=== PATIENT | female | born 1945 | race Caucasian/White ===

== ENCOUNTER 2022-09-07 16:47 | Inpatient (IN) | payer OTHER, MEDICAID ==
[~2022-09-07] VITALS: Ht 152.4 cm; Wt 59.0 kg
[2022-09-07 16:47] VITALS: BP_SYST 130
--- NOTE | 2022-09-07 16:47 | NUR ---
BROUGHT IN BY [facility]BULANCE AND PLACED IN HALLWAY, TRIAGED. AWAITING ER BED AVAILABILITY
[2022-09-07] MEDS ORDERED: ONDANSETRON HCL 4 MG/2 ML VIAL IVP ONE (17:00)
[2022-09-07] MEDS ORDERED: VANCOMYCIN HCL 1,000 MG in D5W 250 ML IV ONE (17:00)
[2022-09-07] MEDS ORDERED: MORPHINE 4 MG INJ. 4 MG/ML VIAL IVP ONE ×2 (17:00→20:00)
[2022-09-07] MEDS ORDERED: PIPERACILLIN/TAZO 3.375 GM in D5W 50 ML IV ONE (17:00)
[2022-09-07] MEDS ORDERED: NS 1000 ML IV.SOLN IV ONE (17:00)
[2022-09-07] MEDS ORDERED: MOM PO (17:03)
[2022-09-07] MEDS ORDERED: VOLTAREN GEL TP (17:03)
[2022-09-07] MEDS ORDERED: ACET-73 PO (17:03)
[2022-09-07] MEDS ORDERED: APIX5TAB4 PO (17:03)
[2022-09-07] MEDS ORDERED: LIDO700A30 TP (17:03)
[2022-09-07] MEDS ORDERED: ACET325T53 PO (17:03)
[2022-09-07] MEDS ORDERED: AMLO2.5T2 PO (17:03)
[2022-09-07] MEDS ORDERED: BISA-79 PR (17:03)
--- NOTE | 2022-09-07 17:03 | NUR ---
Medication reconciliation completed with information provided by MATILDA PRECIADO. Any prior medication reconciliation on file was reviewed and corrected.
[2022-09-07 17:28] LABS: BASOPHILS # (AUTO) 0.1 K/uL (0.0-0.2); BASOPHILS % (AUTO) 0.9 % (0.0-2.0); EOSINOPHILS # (AUTO) 0.2 K/uL (0.0-0.4); EOSINOPHILS % (AUTO) 2.7 % (0.0-4.0); HEMATOCRIT 41.6 % (36-48); HEMOGLOBIN 14.1 g/dL (12.0-16.0); LYMPHOCYTES # (AUTO) 3.2 K/uL (1.0-5.5); LYMPHOCYTES % (AUTO) 47.7 % (20.5-51.5); MEAN CORPUSCULAR HEMOGLOBIN 30 pg (27-31); MEAN CORPUSCULAR HGB CONC 34 % (32-36); MEAN CORPUSCULAR VOLUME 87 fL (79.0-98.0); MONOCYTES # (AUTO) 0.6 K/uL (0.0-1.0); MONOCYTES % (AUTO) 8.7 % (1.7-9.3); NEUTROPHILS # (AUTO) 2.7 K/uL (1.8-7.7); PLATELET COUNT (AUTO) 189 K/uL (130-430); RED BLOOD CELL COUNT(AUTO) 4.79 MIL/uL (4.2-6.2); RED CELL DISTRIBUTION WIDTH 13.7 % (9.0-15.0); WHITE BLOOD COUNT (AUTO) 6.7 K/uL (4.8-10.8)
--- NOTE | 2022-09-07 17:40 | NUR ---
# 22 gauge angiocath placed to RAC. Use of asceptic technique. Opsite placed over site. Blood return noted. Flushed with 10 cc of normal saline. No evidence of infiltration noted. Patient tolerated well.
[2022-09-07 17:42] LABS: ANION GAP 9 (5-15); CALCIUM 8.9 mg/dL (8.4-11.0); CHLORIDE 106 mmol/L (98-107); CREATININE 1.07 mg/dL (0.55-1.30); GLUCOSE 110 mg/dL (70-99); UREA NITROGEN, BLOOD 15 mg/dL (8-21)
[2022-09-07] MEDS ORDERED: PIPERACILLIN/TAZOBACTAM 3.375 GM/VIAL (ZOSYN) IV ONE (17:44)
[2022-09-07] MEDS ORDERED: VANCOMYCIN HCL 1000 MG/VIAL IV ONE (17:44)
[2022-09-07 17:48] LABS: ALANINE AMINOTRANSFERASE 9 U/L (12-78); ALBUMIN 2.9 g/dL (3.4-4.8); ASPARTATE AMINOTRANSFERASE 11 U/L (10-37); TOTAL BILIRUBIN 0.3 mg/dL (0.0-1.0)
--- NOTE | 2022-09-07 19:17 | NUR ---
REPORT GIVEN TO CARLOS CORREA FOR CONTINUING CARE
--- NOTE | 2022-09-07 19:35 | NUR ---
Admit bed requested Patient will be admitted to care of . Admitted to MED SURG unit. Diagnosis CELLULITIS AND GANGRENE LEFT FOOT Inpatient (Yes or No) YES Observation (Yes or No) NO Orientation concerns or request close to nursing station (Yes or No) NO Covid Status NEG On vent or bipap NO Isolation requirements NO Needs a sitter NO From Home (Yes or if No enter name of facility) MATILDA PRECIADO Requires Dialysis (Yes or No) NO Med Rec Completed (Yes of No) PENDING
--- NOTE | 2022-09-07 20:37 | NUR ---
COVID SWAB OBTAINED AND SENT TO LAB.
--- NOTE | 2022-09-07 21:16 | NUR ---
Patient will be admitted to care of DR HOWELL. Admitted to MED SURG unit. Will go to room 118A. Belongings list completed. Complete and up to date summary report printed. SBAR report to be given at bedside with opportunity for questions.
--- NOTE | 2022-09-07 21:25 | NUR ---
ADMISSION NOTE Received patient from ER via [place]. Patient admitted with diagnosis of CELLULITIS, GANGRENE LEFT FOOT. Patient oriented to hospital routine, call light, toileting and safety-patient verbalized understanding.
--- NOTE | 2022-09-07 21:35 | NUR ---
Initial RN notes Received pt from ED. Pt AAOx3, VSS, afebrile. Pt right away requested pain medication Morphine and Tums Informed pt we need to call MD to get orders. Left great toe black dry wound noted open to air. Pt refused for it to be touched. Photo taken. Oriented to call light use. Bed low, locked, siderails up x3, alarm on. To monitor.
[2022-09-07 21:36] VITALS: BP_SYST 139
--- NOTE | 2022-09-07 21:50 | NUR ---
Pagemichelle Huerta for pain medication.
--- NOTE | 2022-09-07 21:56 | NUR ---
called back Received callback from Dr. Huerta and order received for Tums and Morphine. Will carry out.
[2022-09-07] MEDS ORDERED: NALOXONE HCL 0.4 MG/ML AMP (NARCAN) IVP PRN (22:00)
[2022-09-07] MEDS ORDERED: ONDANSETRON HCL 4 MG/2 ML VIAL IVP PRN (22:00)
[2022-09-07] MEDS: CALCIUM CARBONATE 500 MG/ TAB.CHEW PO SCH (22:09)
[2022-09-07] MEDS: MORPHINE 2 MG/ML INJ. SYRINGE IVP PRN (22:12)
--- NOTE | 2022-09-07 22:12 | NUR ---
Pain med Pt medicated with c/o 05/09 Left toe wound pain with Morphine 2mg IVP as needed. Wound open to air. Call light within reach.
[2022-09-07] MEDS ORDERED: PIPERACILLIN/TAZOBACTAM 2.25 GM VIAL IV ONE (23:07)
--- NOTE | 2022-09-07 23:45 | NUR ---
MRSA collected and sent to lab.
[2022-09-07] MEDS: PIPERACILLIN/TAZOBACTAM 2.25 GM in NS 50 ML IV SCH (23:59)
[2022-09-08 00:28] VITALS: BP_SYST 118
--- NOTE | 2022-09-08 03:02 | NUR ---
Rounds Pt asleep, no s/s distress or discomfort noted. Call light within reach. Bed low, locked, siderail up x3, alarm on.
--- NOTE | 2022-09-08 04:07 | NUR ---
Consultation Paged Reason for Consultation: gangrene left foot Was consult called: Y Person who was notified: Angi Consulting Physician: Dr. Coker Ordering Physician: Ann Portillo
[2022-09-08] MEDS: PIPERACILLIN/TAZOBACTAM 2.25 GM in NS 50 ML IV SCH (05:38)
[2022-09-08] MEDS: MORPHINE 2 MG/ML INJ. SYRINGE IVP PRN ×4 (05:39→21:29)
--- NOTE | 2022-09-08 05:48 | NUR ---
Consultation Paged Reason for Consultation: GANGRENE LEFT FOOT Was consult called: Y Person who was notified: Safia Consulting Physician: Dr. Gibbs Ordering Physician: Ann Portillo
--- NOTE | 2022-09-08 05:54 | NUR ---
Received call from MD Dr. Gibbs called re new consult. Informed MD re Xray left toe result.
--- NOTE | 2022-09-08 05:55 | NUR ---
Closing notes Pt alert, awake, watching TV, no s/s distress noted. IV antibiotic administered at ordered rate R. AC 22 clear and patent. Pt medicated with pain med and Zofran for c/o stomach discomfort/nausea. Informed pt Tums is not due yet. Left toe wound kept uncovered and untouched per pt request. Call light within reach. Bed low, locked, siderails up x3, alarm on. To endorse to AM nurse.
[2022-09-08 08:00] VITALS: BP_SYST 140
[2022-09-08] MEDS: CALCIUM CARBONATE 500 MG/ TAB.CHEW PO SCH ×3 (08:24→21:27)
[2022-09-08 11:58] VITALS: BP_SYST 132
[2022-09-08] MEDS: FLUCONAZOLE 200 mg/ NS 100 ML IV SCH (12:00)
--- NOTE | 2022-09-08 15:20 | NUR ---
Wound evaluation attempted: Wound evaluation attempted, but patient refused assessment, and refused to have toe/foot touched for assessment. Unable to measure site. Will attempt assessment on 09/09/2022. 1. Left Hallux: Left Hallux has severely overgrown area of 100% black gangrene. No odor, possibly scant yellow drainage in between lateral great toe and medial second toe. Recommend: Pour Betadine over gangrenous area. Cleanse area in between lateral great toe and medial second toe with normal saline. Dry with gauze in between toes. Insert calcium alginate dressing in between area in between lateral great toe and medial second toe. Perform site care daily. Change calcium alginate dressing daily, and as needed for dressing soiling or dislodgment.
[2022-09-08 16:44] VITALS: BP_SYST 108
[2022-09-08] MEDS ORDERED: VANCOMYCIN HCL 750 MG in NS 250 ML IV SCH (17:00)
[2022-09-08 20:00] VITALS: BP_SYST 118
--- NOTE | 2022-09-08 20:00 | NUR ---
ASSESSMENT COMPLETE, PATIENT REFUSE NURSE TO TOUCH THE LEFT GREAT TOE, PATIENT INCONTINENT OF URINE, PERICARE GIVEN, PATIENT ABLE TO LIFT BOTTOM TO CHANGE PAIN, COMFORT MAINTAINED WITH MORPHINE, SEE EMAR
[2022-09-09 00:15] VITALS: BP_SYST 135
--- NOTE | 2022-09-09 01:30 | NUR ---
PATIENT GIVEN A SNACK, PATIENT WATCHING TV
--- NOTE | 2022-09-09 03:00 | NUR ---
PATIENT SLEEPING, NO DISTRESS NOTED, COMFORT MAINTAINED, PATIENT ABLE TO REPOSITION SELF IN BED, PATIENT WILL NOT TURN Q2HRS, PATIENT REFUSE LEFT GREAT TOE DRESSING CHANGE
[2022-09-09] MEDS: MORPHINE 2 MG/ML INJ. SYRINGE IVP PRN ×3 (05:54→22:30)
[2022-09-09 08:00] VITALS: BP_SYST 133
[2022-09-09] MEDS: CALCIUM CARBONATE 500 MG/ TAB.CHEW PO SCH ×3 (08:52→22:29)
[2022-09-09] MEDS: FLUCONAZOLE 200 mg/ NS 100 ML IV SCH (12:47)
--- NOTE | 2022-09-09 15:16 | NUR ---
Assessment re: hospice consult Telephone call with the daughter, Najma Rodarte, about the recent hospice consult. The daughter states she did speak with the dr, but was still not clear as to what hospice did. I gave a brief general overview of what hospice does, but advised her that the hospice agency could explain their services to them. per daughter, she would need to discuss this information with her brother first before a decision is made. The daughter states she does not have a preferred hospice at this time. I provided her with several hospice brochures for her to review at bedside. At the daughter's request, hospice agencies were also sent to her via email for her review. Najma Rodarte:
[2022-09-09] MEDS ORDERED: FLUCONAZOLE 200 mg/ NS 100 ML IV SCH (16:15)
--- NOTE | 2022-09-09 17:13 | NUR ---
Dietitian Recommendations * CCHO + Cardiac diet, Vanilla Glucerna BID + Danny BID (supplements yield 620 kcal/day, 25 g PRO/day). - RN to mix Glucerna w/ water per pt request. * Encourage good PO intake during meal times. * Provided PM & HS snacks of v. pudding & orange slices. LP, MS, RD Please refer to Nutrition Assessment for details. Addendum: 09/09/22 at 1714 by Shira PRICE Amended: Links added.
--- NOTE | 2022-09-09 19:34 | NUR ---
RECEIVED REPORT ON PATIENT FROM CARLOS KAHN, ASSUMED CARE, AND STARTED ASSESSMENT.
[2022-09-09] MEDS: ceFAZolin SODIUM 1 GM in D5W 50 ML IV SCH (22:36)
[2022-09-10 00:55] VITALS: BP_SYST 125
[2022-09-10] MEDS: ceFAZolin SODIUM 1 GM in D5W 50 ML IV SCH ×3 (06:00→21:08)
[2022-09-10 07:44] VITALS: BP_SYST 145
[2022-09-10] MEDS: CALCIUM CARBONATE 500 MG/ TAB.CHEW PO SCH ×3 (10:34→21:08)
[2022-09-10] MEDS: FLUCONAZOLE 200 mg/ NS 100 ML IV SCH (10:57)
[2022-09-10] MEDS: MORPHINE 2 MG/ML INJ. SYRINGE IVP PRN ×3 (10:59→21:13)
[2022-09-10 12:00] VITALS: BP_SYST 122
[2022-09-10 16:00] VITALS: BP_SYST 105
--- NOTE | 2022-09-10 19:24 | NUR ---
RECEIVED REPORT ON PATIENT FROM CARLOS ROGEL, ASSUMED CARE, AND STARTED ASSESSMENT.
[2022-09-10 20:00] VITALS: BP_SYST 105
--- NOTE | 2022-09-10 20:15 | NUR ---
TRANSFER OF CARE/OPENING NOTE Received report from CARLOS Mosquera. Pt is awake lying in bed watching TV. No s/s of respiratory distress. Breathing even and unlabored on RA. IV site intact and patent saline lock. Fall and safety precautions in place with bed in lowest position, bed alarm on, and call light within reach
--- NOTE | 2022-09-11 00:15 | NUR ---
ROUNDS Pt lying in bed, eyes closed. Breathing even and unlabored. Fall and safety checks in place
[2022-09-11 00:47] VITALS: BP_SYST 106
[2022-09-11] MEDS: MORPHINE 2 MG/ML INJ. SYRINGE IVP PRN ×5 (02:29→20:43)
[2022-09-11] MEDS: ceFAZolin SODIUM 1 GM in D5W 50 ML IV SCH ×3 (06:05→21:20)
--- NOTE | 2022-09-11 06:26 | NUR ---
REFUSED WOUND CARE pt refused AM wound care on left big toe
--- NOTE | 2022-09-11 06:38 | NUR ---
CLOSING NOTE Pt is awake lying in bed. No s/s of respiratory distress. Breathing even and unlabored on RA. IV site intact and patent. All needs met throughout shift. Fall and safety precautions in place with bed in lowest position, bed alarm on, and call light within reach.
--- NOTE | 2022-09-11 08:00 | NUR ---
received patient from pm nurse, alert and oriented able to verbalize needs, no distress observed, will assume all care of patient
[2022-09-11 08:52] LABS: ALANINE AMINOTRANSFERASE 7 U/L (12-78); ALBUMIN 2.2 g/dL (3.4-4.8); ANION GAP 9 (5-15); ASPARTATE AMINOTRANSFERASE 17 U/L (10-37); CALCIUM 8.7 mg/dL (8.4-11.0); CHLORIDE 107 mmol/L (98-107); CREATININE 0.83 mg/dL (0.55-1.30); GLUCOSE 108 mg/dL (70-99); TOTAL BILIRUBIN 0.4 mg/dL (0.0-1.0); UREA NITROGEN, BLOOD 11 mg/dL (8-21)
[2022-09-11] MEDS: CALCIUM CARBONATE 500 MG/ TAB.CHEW PO SCH ×3 (10:03→21:00)
[2022-09-11 11:47] VITALS: BP_SYST 100
[2022-09-11] MEDS: FLUCONAZOLE 200 mg/ NS 100 ML IV SCH (12:55)
--- NOTE | 2022-09-11 16:22 | NUR ---
patient refused to have wound on foot assesed or wound care done
--- NOTE | 2022-09-11 16:42 | NUR ---
CONSULTATION PAGED REASON FOR CONSULTATIONl:CARDIAC CLEARNCE PRE OP SURGERY AMUPTATION LEFT T WAS CONSULT CALLED?Y PERSON WHO WAS NOTIFIED:TEXT MESSAGED SANDEEP WHITAKER CONSULTING PHYSICIAN:SANDEEP WHITAKER MACHINE SETTER AND REPAIRER SPECIALTY:CARDIO MACHINE SETTER AND REPAIRER PHONE NUMBER:[phone] REQUESTING PHYSICIAN:KYLER TURNER
[2022-09-11 17:04] VITALS: BP_SYST 118
--- NOTE | 2022-09-11 19:30 | NUR ---
OPENING NOTE PT LYING IN BED, EYES OPENED. BREATHING EVEN AND NONLABORED. PT REQUESTED MORPHINE FOR PAIN ON HER LEFT BIG TOE. PAIN LEVEL 6/10. VSS. BED ALARM ON AND LOWEST POSITION. CALL LIGHT IN REACH. CONTINUE TO MONITOR.
[2022-09-11 20:00] VITALS: BP_SYST 115
[2022-09-11 22:00] VITALS: BP_SYST 115
[2022-09-12] VITALS: BP_SYST 115
[2022-09-12] MEDS: MORPHINE 2 MG/ML INJ. SYRINGE IVP PRN ×3 (00:55→10:24)
--- NOTE | 2022-09-12 01:00 | NUR ---
ROUNDING NOTE PT LYING IN BED. BREATHING EVEN AND NONLABORED. COMPLAINED ABOUT THE PAIN OF HER LEFT GREAT TOE AND REQUESTED MORPHINE. GIVEN MORPHINE VIA IV BY CARLOS ALVARADO. BED ALARM ON AND LOWEST POSITION.
--- NOTE | 2022-09-12 05:45 | NUR ---
LINEN CHANGED PT'S BED WET WITH URINE. PROVIDED PERINEAL CARE AND CHANGED LINEN AND BLANKET. NO S/S OF ACUTE DISTRESS. BED ALARM ON AND LOWEST POSITION. CALL LIGHT IN REACH. PT ON NPO FOR SCHEDULED SURGERY.
[2022-09-12] MEDS: ceFAZolin SODIUM 1 GM in D5W 50 ML IV SCH ×3 (06:03→21:54)
[2022-09-12 06:28] LABS: BASOPHILS # (AUTO) 0.1 K/uL (0.0-0.2); BASOPHILS % (AUTO) 0.9 % (0.0-2.0); EOSINOPHILS # (AUTO) 0.5 K/uL (0.0-0.4); EOSINOPHILS % (AUTO) 7.2 % (0.0-4.0); HEMATOCRIT 41.9 % (36-48); LYMPHOCYTES # (AUTO) 2.7 K/uL (1.0-5.5); LYMPHOCYTES % (AUTO) 42.8 % (20.5-51.5); MEAN CORPUSCULAR HEMOGLOBIN 29 pg (27-31); MEAN CORPUSCULAR HGB CONC 33 % (32-36); MEAN CORPUSCULAR VOLUME 87 fL (79.0-98.0); MONOCYTES # (AUTO) 0.6 K/uL (0.0-1.0); MONOCYTES % (AUTO) 10.1 % (1.7-9.3); NEUTROPHILS # (AUTO) 2.5 K/uL (1.8-7.7); PLATELET COUNT (AUTO) 181 K/uL (130-430); RED CELL DISTRIBUTION WIDTH 14.2 % (9.0-15.0); WHITE BLOOD COUNT (AUTO) 6.4 K/uL (4.8-10.8)
[2022-09-12 06:43] LABS: ANION GAP 10 (5-15); CALCIUM 8.4 mg/dL (8.4-11.0); CHLORIDE 106 mmol/L (98-107); GLUCOSE 102 mg/dL (70-99); UREA NITROGEN, BLOOD 9 mg/dL (8-21)
--- NOTE | 2022-09-12 06:58 | NUR ---
CLOSING NOTE PT LYING BED. EYES CLOSED. NO S/S ACUTE DISTRESS. BREATHING EVEN AND NONLABORED. LEFT GREAT TOE IS BLACK COLOR AND DRY. BED ALARM ON AND LOWEST POSITION.
[2022-09-12 07:00] LABS: PROTHROMBIN TIME 10.7 SECS (9.5-12.5)
[2022-09-12] MEDS: CALCIUM CARBONATE 500 MG/ TAB.CHEW PO SCH ×3 (09:00→21:03)
--- NOTE | 2022-09-12 11:00 | NUR ---
PATIENTS IV IN LAC BECAME DISLODGED, NEW IV STARTED IN RFA 22G
[2022-09-12] MEDS: FLUCONAZOLE 200 mg/ NS 100 ML IV SCH (12:00)
[2022-09-12 13:15] VITALS: BP_SYST 111
[2022-09-12] MEDS ORDERED: MIDAZOLAM HCL 2 MG/2 ML VIAL (VERSED) ONE (13:30)
[2022-09-12] MEDS ORDERED: LR 1,000 ML IV.SOLN IV ONE (13:30)
[2022-09-12] MEDS ORDERED: KETOROLAC TROMETHAMINE 30 MG VIAL ONE (13:30)
[2022-09-12] MEDS ORDERED: PHENYLEPHRINE HCL 10 MG/ML VIAL (NEOSYNEPHRINE) ONE (13:30)
[2022-09-12] MEDS ORDERED: ceFAZolin SODIUM 2 GM VIAL ONE (13:30)
[2022-09-12] MEDS ORDERED: fentaNYL CITRATE/PF 100 MCG/2 ML AMP ONE (13:30)
[2022-09-12] MEDS ORDERED: NS IRRIG SOLN 1000 ML IR ONE (13:30)
[2022-09-12] MEDS ORDERED: PROPOFOL 200MG/ 20ML VIAL (DIPRIVAN) IV ONE (13:30)
[2022-09-12] MEDS ORDERED: DEXAMETHASONE SOD PHOSPHATE 4 MG/ML VIAL ONE (13:30)
[2022-09-12] MEDS ORDERED: SEVOFLURANE 15 MIN GAS INH ONE (13:30)
[2022-09-12] MEDS ORDERED: ONDANSETRON HCL 4 MG/2 ML VIAL ONE (13:30)
[2022-09-12] MEDS ORDERED: LABETALOL 100 MG/ 20ML VIAL IVP PRN (14:30)
[2022-09-12] MEDS ORDERED: LR 1,000 ML IV SCH (14:30)
[2022-09-12] MEDS ORDERED: hydrALAZINE HCL 20 MG/ML VIAL IVP PRN (14:30)
[2022-09-12] MEDS ORDERED: METOCLOPRAMIDE HCL 10 MG/2 ML VIAL IVP PRN (14:30)
[2022-09-12] MEDS ORDERED: HYDROmorphone 1 MG/ML INJ. CARTRIDGE IVP PRN ×2 (14:30)
[2022-09-12] MEDS ORDERED: MEPERIDINE HCL/PF 25 MG/ML DISP.SYRIN IVP PRN (14:30)
[2022-09-12] MEDS ORDERED: ACETAMINOPHEN I.V. 1000 MG 100 ML IV ONE (14:39)
--- NOTE | 2022-09-12 15:00 | NUR ---
PATIENT TRANSPORTED TO OR, REPORT GIVEN TO RECEIVING NURSE
[2022-09-12] MEDS ORDERED: traMADol HCL HCL 50 MG TABLET (ULTRAM) PO PRN (15:45)
[2022-09-12] MEDS ORDERED: HYDROmorphone 1 MG/ML INJ. CARTRIDGE ONE (15:51)
--- NOTE | 2022-09-12 15:53 | NUR ---
Attempted to see pt. for OT eval, pt is in OR for procedure, will attempt again tomorrow. nursing notified.
--- NOTE | 2022-09-12 16:55 | NUR ---
Met with Dr. Huerta in the station to inquire about the family's decision regarding hospice. I advised him of last week's conversation with the daughter and the daughter's plan to review the information provided and discuss with her brother over the weekend. advised that a follow call was made to the daughter earlier today with a request to return the message, but that i will call again before i leave for the day. Telephone conversation with the daughter, Najma, to discuss hospice. Per daughter, she received the information but has not had a chance to discuss with her brother. I advised her of the plan at this time, as the patient will have the surgery today, and if all goes well, there could be potential discharge planning for tomorrow. Daughter advised that she will need to make the decision to place her mother on hospice at the SNF. daughter asked about which hospice would follow her. Daughter informed that hospice is a medicare benefit, therefore she can choose whichever hospice she would like. Daughter advised that the patient's drThiago does have a preferred hospice, in which his preferred hospice is [facility], but the ultimate decision is up to her. Daughter states she will discuss hospice this evening with her brother and will follow up with me tomorrow.
--- NOTE | 2022-09-12 17:06 | NUR ---
PATIENT RETURNED FROM OR, S/P R GREAT TOE AMPUTATION, DRESSING INTACT, NO C/O PAIN, BP 100/52
[2022-09-12 18:45] VITALS: BP_SYST 125
[2022-09-12 20:00] VITALS: BP_SYST 111
--- NOTE | 2022-09-12 20:49 | NUR ---
RECEIVED PT LYING IN BED, NO DISTRESS NOTED, DENIES PAIN. AAOX3, O2 SAT 97% ON RA. LUNGS CLEAR, DRSG TO LT FOOT CDI. IV TO RT FA SITE CDI
[2022-09-12] MEDS: DOCUSATE SODIUM 100 MG CAPSULE PO SCH (21:03)
[2022-09-13 01:00] VITALS: BP_SYST 101
[2022-09-13 04:10] LABS: BILIRUBIN,URINE NEGATIVE (NEGATIVE); BLOOD, URINE NEGATIVE (NEGATIVE); COLOR,URINE GREEN (YELLOW); GLUCOSE,URINE NEGATIVE (NEGATIVE); KETONES,URINE TRACE (NEGATIVE); LEUKOCYTE ESTERASE ,URINE NEGATIVE (NEGATIVE); NITRITE, URINE NEGATIVE (NEGATIVE); PH,URINE 6.5 (5.0-8.0); PROTEIN URINE TRACE (NEGATIVE); UROBILINOGEN,URINE 0.2 (0.2-1.0)
[2022-09-13 04:21] LABS: CLARITY/URINE CLEAR (CLEAR)
[2022-09-13 04:22] LABS: BACTERIA,URINE None Seen /HPF (None Seen); RBC,URINE 0-3 /HPF (0-3); WBC,URINE 0-3 /HPF (0-3)
[2022-09-13] MEDS: ceFAZolin SODIUM 1 GM in D5W 50 ML IV SCH ×3 (05:28→21:54)
--- NOTE | 2022-09-13 08:20 | NUR ---
OPENING NOTES: RECEIVED BEDSIDE SBAR FROM PM SHIFT NURSE, PATIENT REMAINS STABLE, NO S/S OF ANY DISTRESS, RESTING IN BED WITH EYES CLOSED, CALL LIGHT IN REACH, BED AT LOW AND LOCKED POSITION, WILL CONT TO MONITOR PER ORDERS
[2022-09-13] MEDS: CALCIUM CARBONATE 500 MG/ TAB.CHEW PO SCH ×3 (09:21→21:00)
[2022-09-13] MEDS: DOCUSATE SODIUM 100 MG CAPSULE PO SCH ×2 (09:22→21:55)
[2022-09-13 11:40] VITALS: BP_SYST 125; BP_SYST 154; BP_SYST 90
[2022-09-13] MEDS: FLUCONAZOLE 200 mg/ NS 100 ML IV SCH (14:09)
[2022-09-13 15:10] VITALS: BP_SYST 91
--- NOTE | 2022-09-13 16:10 | NUR ---
OT TECH AT BEDSIDE, STATING PATIENT WAS CURSING TELL HIM TO GET OUT, ALL SHE WANT TO DO IS SLEEP. WILL TRY TOMORROW
--- NOTE | 2022-09-13 16:34 | NUR ---
Pt. was seen for OT mnotse, needs encouragement to participate with eval, agreeable initially but after assessing bed mobility and sitting balance, pt started to be agitated. Pt said she just want to sleep and to leave her alone. Pt educate importance of Therapy to increase functional independence. Pt refused to continue and said she doesn't want therapy. Called Pt's daughter for PLF. PT was leaving in SNF for more than 1 yr and has the same uncooperative, aggressive, negative and sometimes hostile behavior. Pls see OT montse for more detail. Nursing notified... OT montse Only, no follow up treatment recommended at this time.
--- NOTE | 2022-09-13 16:36 | NUR ---
HOSPICES DAUGHTER EMILY CALLED ([phone] CELL), YES, DOES WANT HOSPICE FOR HER MOM.
--- NOTE | 2022-09-13 18:52 | NUR ---
CLOSING NOTES: PATIENT REMAINED STABLE, NO S/S OF ANY DISTRESS, CALL LIGHT IN REACH BED AT LOW AND LOCKED POSITION, WILL GIVE PM SHIFT NURSE BEDSIDE SBAR.
[2022-09-13 20:30] VITALS: BP_SYST 129
[2022-09-13] MEDS: SENNOSIDES/DOCUSATE SODIUM 1 TAB TABLET(SENOKOT-S) PO SCH (21:00)
--- NOTE | 2022-09-13 22:15 | NUR ---
Left Great Toe area no bleeding noted / patient does Refuse care at times / .
--- NOTE | 2022-09-14 01:42 | NUR ---
Hourly Rounding patient resting comfort measures implemented call sellers given to patient chest movement symmetrical unlabored .
--- NOTE | 2022-09-14 02:30 | NUR ---
KAMILA GUARDADO po given patient tolerate with sips of water , up right position .
--- NOTE | 2022-09-14 04:27 | NUR ---
Patient Resting assist for position change comfort measures implemented Respirations Remain Regular also unlabored / .
[2022-09-14] MEDS: ceFAZolin SODIUM 1 GM in D5W 50 ML IV SCH ×3 (05:53→21:17)
[2022-09-14 08:00] VITALS: BP_SYST 98
[2022-09-14] MEDS: CALCIUM CARBONATE 500 MG/ TAB.CHEW PO SCH ×3 (10:41→20:42)
[2022-09-14] MEDS: DOCUSATE SODIUM 100 MG CAPSULE PO SCH ×2 (10:42→20:42)
[2022-09-14 12:05] VITALS: BP_SYST 111
[2022-09-14] MEDS: FLUCONAZOLE 200 mg/ NS 100 ML IV SCH (12:56)
--- NOTE | 2022-09-14 14:54 | NUR ---
Sueding Machine Operator re: hospice eval Telephone call made to the daughter, Najma, to inform her of the current hospice eval order. The daughter states her and the brother have spoken and are in agreement with hospice services. Per daughter, she is in agreement to go with the 's preferred hospice, [facility]. I advised the daughter that I will submit a clinical packet to [facility] and that they will call her to discuss the services being provided. Clinical packet sent to [facility]. [facility] advised that the patient does not have a discharge order at this time, but to discuss services and discharge arrangements with the daughter. [facility]: [phone]
[2022-09-14 15:20] VITALS: BP_SYST 97
--- NOTE | 2022-09-14 16:19 | NUR ---
Received call from Jorge Luis at [facility] who advised they received the referral and have made contact with the daughter, Najma. Per Jorge Luis, the daughter has indicated that she does not want the patient to return to [facility]. Jorge Luis states [facility] is currently looking for alternative placement options for the patient. Jorge Luis advised that there is still no discharge order in place. At this time, [facility] is actively working on finding placement for the patient upon discharge. [facility]: [phone]
--- NOTE | 2022-09-14 18:59 | NUR ---
P.T. NOTES P.T. EVAL COMPLETED; REFER TO EVAL FOR DETAILS.
[2022-09-14 20:00] VITALS: BP_SYST 96
[2022-09-14] MEDS: SENNOSIDES/DOCUSATE SODIUM 1 TAB TABLET(SENOKOT-S) PO SCH (20:42)
[2022-09-15] MEDS: ceFAZolin SODIUM 1 GM in D5W 50 ML IV SCH ×3 (05:36→21:18)
--- NOTE | 2022-09-15 07:27 | NUR ---
receive the patient form the fast food shift lead rn in rm 128A aox3 with admitting diagnosis of cellulitis of the left toe gangrene . still with antibiotics . will continue to monitor
[2022-09-15] MEDS: CALCIUM CARBONATE 500 MG/ TAB.CHEW PO SCH ×3 (09:07→21:00)
[2022-09-15] MEDS: DOCUSATE SODIUM 100 MG CAPSULE PO SCH ×2 (09:07→21:00)
[2022-09-15 11:05] VITALS: BP_SYST 119
[2022-09-15] MEDS: FLUCONAZOLE 200 mg/ NS 100 ML IV SCH (14:29)
[2022-09-15 15:05] VITALS: BP_SYST 112
--- NOTE | 2022-09-15 18:20 | NUR ---
will endorse to hourly shift manager rn for continuity of care . still for antibiotics therapy . planning to be discharge to if
--- NOTE | 2022-09-15 19:25 | NUR ---
CHANGE OF SHIFT; endorsed by day shift nurse Jeet. S/P rt. great toe amputation. in no distress. does not want to be bothered at this time since she is watching some show on tv.
[2022-09-15 20:00] VITALS: BP_SYST 118
[2022-09-15] MEDS: SENNOSIDES/DOCUSATE SODIUM 1 TAB TABLET(SENOKOT-S) PO SCH (21:00)
--- NOTE | 2022-09-15 21:00 | NUR ---
NOTES: pt. refused oral medications. rt. foot dressing intact and elevated with pillow. IV lock on rt. arm. safety precautions observed.
--- NOTE | 2022-09-15 22:00 | NUR ---
NOTES: pt. incontinent of urine and changed and kept dry. repositioned. IV antibiotic infusing.
--- NOTE | 2022-09-16 00:15 | NUR ---
NOTES: due VS checked. no complaints manifested.
[2022-09-16 00:32] VITALS: BP_SYST 125
--- NOTE | 2022-09-16 02:30 | NUR ---
NOTES: pt. sleeping when checked. condition unchanged.
[2022-09-16] MEDS: ceFAZolin SODIUM 1 GM in D5W 50 ML IV SCH ×3 (05:33→21:30)
--- NOTE | 2022-09-16 05:40 | NUR ---
NOTES: joann care done, incontinent of urine and had a bm. pt. has mood swings. IV patent, due IV antibiotic started.left great toe incision intact, dressing removed. kept elevated with pillow.
--- NOTE | 2022-09-16 06:52 | NUR ---
CLOSING NOTES; pt. went back to sleep. kept wound open to air with sutures intact. sequential compressor on. IV site patent. bed alarm on. for further assistance. will endorse to incoming shift.
--- NOTE | 2022-09-16 07:24 | NUR ---
receive the patient from the colliery clerk rn [email or web address] admitting diagnosis of cellulitis of the left toe . will continue to monitor
[2022-09-16 07:58] LABS: BASOPHILS % (AUTO) 0.9 % (0.0-2.0); EOSINOPHILS # (AUTO) 0.3 K/uL (0.0-0.4); EOSINOPHILS % (AUTO) 4.6 % (0.0-4.0); HEMATOCRIT 36.3 % (36-48); HEMOGLOBIN 12.3 g/dL (12.0-16.0); LYMPHOCYTES # (AUTO) 2.4 K/uL (1.0-5.5); LYMPHOCYTES % (AUTO) 41.5 % (20.5-51.5); MEAN CORPUSCULAR HEMOGLOBIN 29 pg (27-31); MEAN CORPUSCULAR HGB CONC 34 % (32-36); MEAN CORPUSCULAR VOLUME 87 fL (79.0-98.0); MONOCYTES # (AUTO) 0.6 K/uL (0.0-1.0); MONOCYTES % (AUTO) 11.3 % (1.7-9.3); NEUTROPHILS # (AUTO) 2.4 K/uL (1.8-7.7); NEUTROPHILS % (AUTO) 41.7 % (40.0-70.0); PLATELET COUNT (AUTO) 173 K/uL (130-430); RED BLOOD CELL COUNT(AUTO) 4.18 MIL/uL (4.2-6.2); WHITE BLOOD COUNT (AUTO) 5.7 K/uL (4.8-10.8)
[2022-09-16 08:00] VITALS: BP_SYST 130
[2022-09-16 08:13] LABS: ANION GAP 5 (5-15); CALCIUM 8.4 mg/dL (8.4-11.0); CHLORIDE 108 mmol/L (98-107); CREATININE 0.98 mg/dL (0.55-1.30); GLUCOSE 97 mg/dL (70-99); UREA NITROGEN, BLOOD 14 mg/dL (8-21)
[2022-09-16] MEDS: CALCIUM CARBONATE 500 MG/ TAB.CHEW PO SCH ×3 (09:38→21:23)
[2022-09-16] MEDS: DOCUSATE SODIUM 100 MG CAPSULE PO SCH ×2 (09:38→21:23)
[2022-09-16] MEDS: FLUCONAZOLE 200 mg/ NS 100 ML IV SCH (11:53)
--- NOTE | 2022-09-16 18:55 | NUR ---
still with antibiotics for her left toe ampution .for snif placement . will endorse to shift superintendent rn for continuity of care
[2022-09-16] MEDS: SENNOSIDES/DOCUSATE SODIUM 1 TAB TABLET(SENOKOT-S) PO SCH (21:23)
[2022-09-16 21:45] VITALS: BP_SYST 109
[2022-09-17 01:23] VITALS: BP_SYST 120
[2022-09-17 04:33] VITALS: BP_SYST 112
[2022-09-17] MEDS ORDERED: SENN-22 PO (05:23)
[2022-09-17] MEDS ORDERED: CEPH250C PO (05:23)
[2022-09-17] MEDS ORDERED: DOCU-144 PO (05:23)
[2022-09-17] MEDS ORDERED: FLUC200T PO (05:23)
[2022-09-17] MEDS: ceFAZolin SODIUM 1 GM in D5W 50 ML IV SCH ×3 (05:37→21:46)
--- NOTE | 2022-09-17 07:30 | NUR ---
OPENING NOTES: PT RESTING IN BED, NO S/S PAIN OR DISCOMFORT. IV SITE REMAIN INTACT AND CLEAN. NO IV INFILTRATION OR INFECTION NOTED. CALL LIGHT WITHIN REACH. ENCOURAGED TO USE CALL LIGHT FOR ASSISTANCE. BED ALARM ON. WILL CONT TO MONITOR.
[2022-09-17 08:00] VITALS: BP_SYST 124
[2022-09-17] MEDS: DOCUSATE SODIUM 100 MG CAPSULE PO SCH ×2 (08:52→21:45)
[2022-09-17] MEDS: CALCIUM CARBONATE 500 MG/ TAB.CHEW PO SCH ×3 (08:52→21:45)
--- NOTE | 2022-09-17 11:25 | NUR ---
NOTES; DENIES ANY PAIN OR DISCOMFORT. IV REMAIN INTACT AND CLEAN. WILL CONT TO MONITOR
[2022-09-17 11:33] VITALS: BP_SYST 110
[2022-09-17] MEDS: FLUCONAZOLE 200 mg/ NS 100 ML IV SCH (12:11)
--- NOTE | 2022-09-17 15:30 | NUR ---
NOTES; PT RESTING IN BED COMFORTABLY. DENIES ANY PAIN OR DISCOMFORT. WILL CONT TO MONITOR
[2022-09-17 16:54] VITALS: BP_SYST 112
--- NOTE | 2022-09-17 18:53 | NUR ---
CLOSING NOTE; PT RESTING IN BED, BREATHING NON-LABORED AND REGULAR. IV SITE REMAIN INTACT AND PATENT. NO IV INFILTRATION OR INFECTION. BED IS LOCKED AND AT LOW POSITION. SAFETY PRECAUTION IN PLACE. ENCOURAGED PT TO USE CALL LIGHT FOR ASSISTANCE. WILL ENDORSE CARE TO OFFSET PLATE PREPARATION SUPERVISOR NURSE.
--- NOTE | 2022-09-17 19:58 | NUR ---
PT IN BED, AOX3, EVEN AND UNLABORED BREATHING, IV ACCESS PATENT AND FLUSHING, SAFETY PREC MAINTAINED, CALL LIGHT WITHIN REACH, WILL CONTINUE WITH PLAN OF CARE
[2022-09-17 20:05] VITALS: BP_SYST 116
[2022-09-17] MEDS: SENNOSIDES/DOCUSATE SODIUM 1 TAB TABLET(SENOKOT-S) PO SCH (21:45)
[2022-09-18 01:37] VITALS: BP_SYST 108
[2022-09-18] MEDS: ceFAZolin SODIUM 1 GM in D5W 50 ML IV SCH ×3 (06:14→21:45)
[2022-09-18 06:22] LABS: ANION GAP 5 (5-15); C-REACTIVE PROTEIN QUANT 0.4 mg/dL (0-0.5); CALCIUM 8.4 mg/dL (8.4-11.0); CHLORIDE 107 mmol/L (98-107); CREATININE 1.07 mg/dL (0.55-1.30); GLUCOSE 97 mg/dL (70-99); UREA NITROGEN, BLOOD 12 mg/dL (8-21)
[2022-09-18 06:37] LABS: BASOPHILS # (AUTO) 0.1 K/uL (0.0-0.2); BASOPHILS % (AUTO) 1.2 % (0.0-2.0); EOSINOPHILS # (AUTO) 0.4 K/uL (0.0-0.4); EOSINOPHILS % (AUTO) 6.6 % (0.0-4.0); HEMATOCRIT 35.2 % (36-48); HEMOGLOBIN 11.7 g/dL (12.0-16.0); LYMPHOCYTES # (AUTO) 2.3 K/uL (1.0-5.5); LYMPHOCYTES % (AUTO) 43.6 % (20.5-51.5); MEAN CORPUSCULAR HEMOGLOBIN 29 pg (27-31); MEAN CORPUSCULAR HGB CONC 33 % (32-36); MEAN CORPUSCULAR VOLUME 88 fL (79.0-98.0); MONOCYTES # (AUTO) 0.7 K/uL (0.0-1.0); MONOCYTES % (AUTO) 12.8 % (1.7-9.3); NEUTROPHILS # (AUTO) 1.9 K/uL (1.8-7.7); NEUTROPHILS % (AUTO) 35.8 % (40.0-70.0); PLATELET COUNT (AUTO) 179 K/uL (130-430); RED CELL DISTRIBUTION WIDTH 14.1 % (9.0-15.0); WHITE BLOOD COUNT (AUTO) 5.4 K/uL (4.8-10.8)
--- NOTE | 2022-09-18 07:11 | NUR ---
PT IN BED, AOX2, EVEN AND UNLABORED BREATHING, L BIG TOE DSG CLEAN, DRY AND INTACT, NO ACTIVE BLEEDING NOTED, IV ACCESS PATENT AND FLUSHING, RECEIVED ALL DUE MEDS, NO C/O SOB, CP OR ANY PAIN DURING SHIFT, SAFETY PREC MAINTAINED, CALL LIGHT WITHIN REACH, WILL BED ENDORSED TO AM RN
[2022-09-18 07:13] LABS: ERYTHROCYTE SEDIMENTATION RATE 12 MM/HR (0-20)
--- NOTE | 2022-09-18 07:47 | NUR ---
OPENING NOTE; PT SLEEPING IN BED WITH EYES CLOSED, BREATHING EVEN AND NON-LABORED. NO S/S OF ANY PAIN OR DISCOMFORT. NO IV INFILTRATION OR INFECTION NOTED. BED IS LOCKED AND AT LOW POSITION. CALL LIGHT WITHIN REACH. BED ALARM ON. ENCOURAGED TO USE CALL LIGHT FOR ASSISTANCE. WILL CONT TO MONITOR
[2022-09-18 08:00] VITALS: BP_SYST 128
[2022-09-18] MEDS: DOCUSATE SODIUM 100 MG CAPSULE PO SCH ×2 (09:00→20:24)
[2022-09-18] MEDS: CALCIUM CARBONATE 500 MG/ TAB.CHEW PO SCH ×3 (09:25→20:24)
[2022-09-18] MEDS: FLUCONAZOLE 200 mg/ NS 100 ML IV SCH (11:05)
--- NOTE | 2022-09-18 11:25 | NUR ---
NOTES; PT RESTING IN BED. DENIES ANY PAIN OR DISCOMFORT NOTED. WILL CONT TO MONITOR.
[2022-09-18 11:33] VITALS: BP_SYST 107
[2022-09-18 16:52] VITALS: BP_SYST 114
--- NOTE | 2022-09-18 16:56 | NUR ---
NOTES; PROVIDED GOOD PERICARE. PT TOLERATED WELL
--- NOTE | 2022-09-18 18:38 | NUR ---
CLOSING NOTE; PT RESTING IN BED,WATCHING TV, BREATHING EVEN AND NON-LABORED. NO S/S OF ANY PAIN OR DISCOMFORT. NO IV INFILTRATION OR INFECTION NOTED. BED IS LOCKED AND AT LOW POSITION. CALL LIGHT WITHIN REACH. BED ALARM ON. ENCOURAGED TO USE CALL LIGHT FOR ASSISTANCE. WILL ENDORSE CARE TO WELDING MACHINE OPERATOR HELPER GAS NURSE.
[2022-09-18] MEDS: SENNOSIDES/DOCUSATE SODIUM 1 TAB TABLET(SENOKOT-S) PO SCH (20:25)
[2022-09-19] MEDS: ceFAZolin SODIUM 1 GM in D5W 50 ML IV SCH ×2 (06:21→14:00)
[2022-09-19 06:42] LABS: BASOPHILS # (AUTO) 0.1 K/uL (0.0-0.2); EOSINOPHILS # (AUTO) 0.3 K/uL (0.0-0.4); HEMATOCRIT 36.3 % (36-48); LYMPHOCYTES % (AUTO) 38.5 % (20.5-51.5); MEAN CORPUSCULAR HEMOGLOBIN 29 pg (27-31); MEAN CORPUSCULAR HGB CONC 33 % (32-36); MEAN CORPUSCULAR VOLUME 88 fL (79.0-98.0); MONOCYTES # (AUTO) 0.7 K/uL (0.0-1.0); MONOCYTES % (AUTO) 12.6 % (1.7-9.3); NEUTROPHILS # (AUTO) 2.2 K/uL (1.8-7.7); NEUTROPHILS % (AUTO) 41.9 % (40.0-70.0); PLATELET COUNT (AUTO) 170 K/uL (130-430); RED BLOOD CELL COUNT(AUTO) 4.14 MIL/uL (4.2-6.2); RED CELL DISTRIBUTION WIDTH 13.9 % (9.0-15.0); WHITE BLOOD COUNT (AUTO) 5.3 K/uL (4.8-10.8)
[2022-09-19 07:01] LABS: ALANINE AMINOTRANSFERASE 6 U/L (12-78); ALBUMIN 2.1 g/dL (3.4-4.8); ANION GAP 4 (5-15); ASPARTATE AMINOTRANSFERASE 12 U/L (10-37); C-REACTIVE PROTEIN QUANT 0.4 mg/dL (0-0.5); CALCIUM 8.6 mg/dL (8.4-11.0); CHLORIDE 106 mmol/L (98-107); CREATININE 1.21 mg/dL (0.55-1.30); GLUCOSE 99 mg/dL (70-99); TOTAL BILIRUBIN 0.3 mg/dL (0.0-1.0); UREA NITROGEN, BLOOD 12 mg/dL (8-21)
[2022-09-19 08:01] LABS: ERYTHROCYTE SEDIMENTATION RATE 15 MM/HR (0-20)
[2022-09-19] MEDS: DOCUSATE SODIUM 100 MG CAPSULE PO SCH (09:00)
[2022-09-19] MEDS: CALCIUM CARBONATE 500 MG/ TAB.CHEW PO SCH ×2 (09:16→15:00)
[2022-09-19 11:50] VITALS: BP_SYST 108
--- NOTE | 2022-09-19 11:55 | NUR ---
Follow up call made to Jorge Luis from [facility] to inquire if the family has signed the necessary hospice documents. Per Jorge Luis, all of the necessary documents have been signed. I advised Jorge Luis that i will request the nurse to get the discharge order so we can arrange for discharge back to [facility]. Telephone call made to CARLOS Pugh requesting that she contact the drThiago to get a discharge order to return back to [facility]. Per Jorge Luis, once the discharge order is in, he will arrange for the transport to return back to the SNF. I requested a 2-hr window in order for the nurse to complete the necessary paperwork. Upon receiving the discharge order, I will fax to [facility]. [facility]: [phone]
[2022-09-19] MEDS: FLUCONAZOLE 200 mg/ NS 100 ML IV SCH (12:00)
--- NOTE | 2022-09-19 12:00 | NUR ---
PATIENT REFUSED DIFLUCAN IV MED, BECAME IRATE WHEN RISKS AND BENEFITS WERE EXPLAINED
--- NOTE | 2022-09-19 13:05 | NUR ---
Received call from Jorge Luis at [facility] who advised that [facility] will no loonger accept the patient back. The patient will go to [facility] in [place]. The patient will go to room 113-A and will be followed by Dr. Hernandez. Transportation arrangements are still being confirmed and will be provided once arranged. CARLOS Pugh made aware of the discharge arrangements. [facility]: [phone] [facility]: [phone]
--- NOTE | 2022-09-19 14:00 | NUR ---
TELEPHONE CALL FROM BARBARA WITH [facility], REPORT GIVEN AND SHE WILL ANDREINA BACK WITH DERRICK CAR OPERATOR INFORMATION
--- NOTE | 2022-09-19 14:59 | NUR ---
TELEPHONE CALL FROM BARBARA WITH [facility] REPORTING PATIENT WILL BE PICKED UP BY [facility] AT 1700,
[2022-09-19 15:15] VITALS: BP_SYST 120
--- NOTE | 2022-09-19 15:18 | NUR ---
Received call from Jorge Luis at [facility] who advised that the patient's DME will be delivered directly to [facility] between 4p - 4:30p. Transportation arrangements were made with [facility] for a 5p p/u. CARLOS Pugh made aware of the discharge arrangements of the patient. At her request, the discharge order was faxed to [facility]. [facility]: [phone] [facility]: [phone] [facility]: [phone]
[2022-09-19 16:44] VITALS: BP_SYST 120
--- NOTE | 2022-09-19 17:13 | NUR ---
PATIENT DC TO [facility] UNDER THE CARE OF [facility], IV DC IN RFA, TRANSPORTED VIA [facility],
== END 2022-09-19 17:15 | DRG 853 ==
LOC: SED 16:47 → SMU 19:28
PROVIDERS: ADMIT Internal Medicine; ATTEND Internal Medicine
PROC: 0QBP0ZX Excision of Left Metatarsal, Open Approach, Diagnostic (ICD-10-PCS; 2022-09-12)
PROC: 0Y6Q0Z0 Detachment at Left 1st Toe, Complete, Open Approach (ICD-10-PCS; principal; 2022-09-12 13:43)
PROC: 5A1D70Z Performance of Urinary Filtration, Intermittent, Less than 6 Hours Per Day (ICD-10-PCS; 2022-09-19)
DX: A41.9 Sepsis, unspecified organism (principal); E43 Unspecified severe protein-calorie malnutrition; I96 Gangrene, not elsewhere classified; L03.032 Cellulitis of left toe; B96.4 Proteus (mirabilis) (morganii) as the cause of diseases classified elsewhere; E78.5 Hyperlipidemia, unspecified; F31.9 Bipolar disorder, unspecified; E11.9 Type 2 diabetes mellitus without complications; I10 Essential (primary) hypertension; F41.9 Anxiety disorder, unspecified; L60.0 Ingrowing nail; Z20.822 Contact with and (suspected) exposure to COVID-19; Z79.1 Long term (current) use of non-steroidal anti-inflammatories (NSAID); Z79.899 Other long term (current) drug therapy; Z89.429 Acquired absence of other toe(s), unspecified side; Z68.25 Body mass index [BMI] 25.0-25.9, adult
CPT/HCPCS: 36415; 70450-TC; 71045; 72100-TC; 73721; 74018; 76376; 80048; 80053; 81000; 83037; 83605; 84484; 85025; 85610-TC; 85651-TC; 85730-TC; 86140; 86886; 86900; 86901; 87040; 87070-TC; 87075-TC; 87081; 87101; 88304; 88305; 88313; 93005; 93306; 96365; 96375; 97163-GP; 99285; J0131; J0690; J1100; J1170; J1450; J1885; J2270; J2370; J2405; J2543; J2704; J3010; J3370; J3465; J7050; J7060; J7120